=== PATIENT | male | born 1995 | race Caucasian/White ===

== ENCOUNTER → 2024-02-19 | Outpatient (CLI) | payer OTHER ==
--- NOTE | 2024-02-19 12:36 | XR ---
EXAMINATION TYPE: XR hand complete LT DATE OF EXAM: 02/19/2024 CLINICAL HISTORY: pain TECHNIQUE: Frontal, lateral and oblique images of the left hand are obtained. COMPARISON: None. FINDINGS: Mildly Comminuted subungual tuft fracture of the left fourth digit. No additional fracture seen. The joint spaces appear within normal limits. The overlying soft tissue appears unremarkable. IMPRESSION: Mildly Comminuted subungual tuft fracture of the left fourth digit.
== END | disposition home or self-care (01) ==
LOC: RADXRMAIN 12:04
PROVIDERS: ATTEND Emergency Medicine
DX: S62.355A Nondisplaced fracture of shaft of fourth metacarpal bone, left hand, initial encounter for closed fracture (principal); X58.XXXA Exposure to other specified factors, initial encounter